=== PATIENT | male | born 1970 | race Caucasian/White ===

== ENCOUNTER → 2019-04-03 | Outpatient (CLI) | payer OTHER ==
--- NOTE | 2019-04-04 03:18 | REP ---
Clinical: Left inguinal pain. Possible hernia. Technique: Real time shane scale and color evaluation using linear high frequency transducer. Findings: Evaluation of the left inguinal canal demonstrates a very small fat containing reducible hernia. Defect at the inguinal ring measures 7 mm maximal diameter and is unchanged on Valsalva. The right inguinal canal appears normal. Impression: Small reducible fat containing left inguinal hernia. Electronically Signed by Luca Arora MD 04/04/2019 03:10 A
== END ==
LOC: M RAD 11:42
PROVIDERS: ATTEND Nurse Practitioner Family
DX: K40.90 Unilateral inguinal hernia, without obstruction or gangrene, not specified as recurrent (principal)